=== PATIENT | female | born 1940 | race African-American/Black ===

== ENCOUNTER 2017-03-02 17:47 | Observation (INO) | payer MEDICARE ==
[2017-03-02] MEDS ORDERED: Nitroglycerin 0.4 MG TAB (25 Tab Bottle) ONE (19:40)
[2017-03-02 20:26] LABS: #Eosinphils 0.1 thou/uL (0.0-0.7); #Lymphocytes 1.7 thou/uL (1.20-3.40); #Monocytes 0.4 thou/uL (0.11-0.59); #Neutrophils 5.9 thou/uL (1.40-6.50); %Basophils 0.4 % (0.0-1.0); %Eosinophils 1.3 % (0.0-10.0); %Lymphocytes 20.4 % (21.0-51.0); Hematocrit 47.7 % (36.0-47.0); White Blood Cell (WBC) Count 8.1 thou/uL (4.8-10.8)
[2017-03-02 20:50] LABS: Troponin I Less than 0.010 ng/mL (< 0.028)
[2017-03-02 20:56] LABS: ALT (SGPT) 49 U/L (8-55); AST (SGOT) 31 U/L (5-34); Alkaline Phosphatase 77 U/L (40-150); Anion Gap 16 mmol/L (10-20); BUN (Urea Nitrogen) 19 mg/dL (9.8-20.1); Bilirubin, Total 0.5 mg/dL (0.2-1.2); CK (CPK) 191 U/L (29-168); Calc. Creatinine Clearance 0 mL/min (70-130); Calcium 9.9 mg/dL (7.8-10.44); Carbon Dioxide 23 mmol/L (23-31); Chloride 102 mmol/L (98-107); Estimated GFR-MDRD 59; Lipase 30 U/L (8-78)
--- NOTE | 2017-03-02 21:45 | RAD ---
PORTABLE AP CHEST: Date: 03-02-17 History: Ongoing chest pain. Comparison: 12-13-13, 01-29-17 FINDINGS: Cardiac silhouette is magnified by projection but stable in size. Pulmonary vasculature is within no rmal limits. Thoracic aorta is ectatic but unchanged in appearance since the study on 01-29-17. Lungs are clear. There has been no interval change from the prior studies. IMPRESSION: 1. Stable chest without evidence of acute cardiopulmonary process. 2. 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 POS: [facility]
--- NOTE | 2017-03-02 22:43 | HP ---
DATE OF ADMISSION: 03/02/2017 CHIEF COMPLAINT: Elevated blood pressure with mild chest discomfort. CODE STATUS: FULL CODE. SURROGATE DECISION-MAKER: Patient makes her own decisions with the help of her family. HISTORY OF PRESENT ILLNESS: Patient is a 76-year-old female with hypertension, hyperlipidemia, and chronic diastolic heart failure, currently followed by Dr. Momin at [facility], presented to the emergency room with elevated blood pressure. The patient had some headache along with mild ches t discomfort. She felt that her blood pressure was high for which she presented to the emergency ro . She, however, did not check her blood pressure at home. She normally takes blood pressure medi cations twice a day and has not missed her morning dose. She was resting at home when this episode started. She had mild chest discomfort mainly over the epigastric region with some belching that st arted today. She denies any orthopnea, paroxysmal nocturnal dyspnea or recent shortness of breath o n routine activities. No leg swelling, fevers, chills, cough or wheezing reported. In the emergency room, her initial vital signs showed blood pressure of 212/143 with pulse rate of 8 4, respiration 20, temperature 98.4 with O2 saturation 96% on room air. She received sublingual nit roglycerin 0.4 along with aspirin. After sublingual nitroglycerin, her blood pressure has dropped t o 133/72 at this time. Her headache and chest discomfort has completely resolved. She denies any c ardiac workup except for an echocardiogram when she was admitted at this facility in 2013. Her echo cardiogram at that time showed normal left ventricular ejection fraction with mild concentric left v entricular hypertrophy and evidence for diastolic dysfunction with moderate to severe mitral regurgi tation and mild tricuspid regurgitation. She does not follow a benefits sales consultant. PAST MEDICAL HISTORY: 1. Hypertension 2. Hyperlipidemia. 3. History of ER and [place] positive breast cancer, currently on anastrozole followed at [facility]. 4. Chronic obstructive pulmonary disease. 5. Obesity. 6. History of cerebrovascular without residual deficit. 7. Chronic diastolic heart failure with moderate to severe mitral regurgitation in 2013. 8. Peptic ulcer disease secondary to nonsteroidal anti-inflammatory drugs. PAST SURGICAL HISTORY: 1. Left hand surgery. 2. Hysterectomy. 3. Mastectomy with axillary lymphadenopathy on the right in 2014. ALLERGIES: No known drug allergies. CURRENT HOME MEDICATIONS: Patient does not remember any of her home medications. SOCIAL HISTORY: Patient currently lives at home with her family. No current use of smoking, alcoho l or drug use. FAMILY HISTORY: Negative for premature coronary artery disease. REVIEW OF SYSTEMS: REVIEW OF SYSTEMS: The following complete review of systems was negative, unles s otherwise mentioned in the HPI or below: CONSTITUTIONAL: Weight loss or gain, ability to conduct usual activities. SKIN: Rash, itching. EYES: Double vision, pain. ENT/MOUTH: Nose bleeding, neck stiffness, pain, tenderness. CARDIOVASCULAR: Palpitations, dyspnea on exertion, orthopnea. RESPIRATORY: Shortness of breath, wheezing, cough, hemoptysis, fever or night sweats. GASTROINTESTINAL: Poor appetite, abdominal pain, heartburn, nausea, vomiting, constipation, or diar oscar. GENITOURINARY: Urgency, frequency, dysuria, nocturia. MUSCULOSKELETAL: Pain, swelling. NEUROLOGIC/PSYCHIATRIC: Anxiety, depression. ALLERGY/IMMUNOLOGIC: Skin rash, bleeding tendency. PHYSICAL EXAMINATION: VITAL SIGNS: As discussed above. GENERAL: A 76-year-old female in no apparent distress. Denies any chest pain, shortness of breath at this time. Headache has improved. HEENT: Head atraumatic, normocephalic. Sclerae anicteric. Moist mucous membrane, no oral lesion. NECK: Supple, no JVD, no carotid bruit. LUNGS: Clear to auscultation bilaterally. No wheezing or rales. HEART: S1, S2 present. Regular rate and rhythm. 3/6 systolic murmur over the mitral area. ABDOMEN: Soft, nontender, bowel sounds present, no rebound, guarding, no costovertebral angle tende rness. EXTREMITIES: No edema or calf tenderness. NEUROLOGIC: Grossly nonfocal, moves all four extremities. PSYCHIATRY: Alert, awake, oriented x3. SKIN: Warm and dry. LYMPH NODES: No palpable lymph nodes in the neck. PERIPHERAL VASCULAR: Radial pulses palpable bilaterally. MUSCULOSKELETAL: No joint swelling or tenderness. LABORATORY FINDINGS: 1. CBC showed WBC 8.1 with hemoglobin 15.5. 2. Electrolytes in normal range with BUN 19 and creatinine 1.1. 3. LFTs in normal range. 4. Cardiac enzymes were normal. Chest x-ray by my review was negative for infiltrate. Telemetry monitoring by my review showed sinus rhythm. EKG not in the chart. IMPRESSION: 1. Hypertensive urgency with chest discomfort. We will rule out acute coronary syndrome. We will resume her home medications based on [facility]. However, patient does not remember an y of her home medications. She had an echocardiogram in 2013. Since then, she did not have any car diac workup. I even reviewed [facility]. She does not follow a benefits sales consultant. We will keep her n.p.o. past midnight for stress test. An echocardiogram will be done as well. She can fo llow the echocardiogram results probably as outpatient. She will benefit from yearly echocardiogram s due to moderate to severe mitral regurgitation. 2. Hyperlipidemia. We will resume home medications once confirmed. 3. Mild dyspepsia, which started today. Probably secondary to peptic ulcer disease. We will add p roton pump inhibitors. 4. History of breast cancer. We will resume anastrozole once dose confirmed. 5. History of chronic obstructive pulmonary disease. We will add p.r.n. nebulizer treatment. 6. Obesity. 7. History of cerebrovascular accident. 8. Chronic diastolic heart failure, compensated. Plan of care was discussed with the patient. She stated understanding. DISCHARGE DISPOSITION: Home probably in 24 hours.
[2017-03-02] MEDS ORDERED: Ondansetron HCl/PF 4 MG/2 ML Vial IVP PRN (22:44)
[2017-03-02] MEDS ORDERED: Ondansetron ODT 4 MG TAB PO PRN (22:44)
[2017-03-02] MEDS ORDERED: Nitroglycerin 0.4 MG TAB (25 Tab Bottle) PO PRN (22:44)
[2017-03-02] MEDS ORDERED: Senokot 8.6 MG TAB PO PRN (22:44)
[2017-03-02] MEDS ORDERED: Bisacodyl 10 MG SUPP PR PRN (22:44)
[2017-03-02] MEDS ORDERED: Acetaminophen 325 MG TAB PO PRN ×2 (22:44→23:55)
[2017-03-02 23:12] LABS: Troponin I Less than 0.010 ng/mL (< 0.028)
[2017-03-02 23:17] VITALS: BMI 37.3
[2017-03-03 01:18] LABS: Magnesium 2.2 mg/dL (1.6-2.6); Phosphorus 3.1 mg/dL (2.3-4.7)
[2017-03-03 01:39] LABS: Troponin I Less than 0.010 ng/mL (< 0.028)
[2017-03-03] MEDS ORDERED: Aspirin 325 MG TAB PO SCH (09:00)
[2017-03-03] MEDS ORDERED: Metoprolol Tartrate 25 MG TAB PO SCH (09:00)
[2017-03-03] MEDS ORDERED: Lisinopril 10 MG TAB PO SCH (09:00)
[2017-03-03] MEDS ORDERED: Regadenoson 0.4 MG/5 ML SYRINGE ONE (12:00)
--- NOTE | 2017-03-03 14:13 | NM ---
CARDIAC SPECT: CLINICAL HISTORY: 76-year-old female with chest pain. TECHNIQUE: A stress-only myocardial perfusion scan was performed following the intravenous administration of 33 mCi technetium-99m sestamibi. Pharmacologic stress with Lexiscan was monitored and interpreted by Judith Barrientos. FINDINGS: Homogeneous tracer distribution is seen in the myocardial segments on the post stress images without fixed or reversible defects. GATED SPECT LVEF: 60%. WALL MOTION EXAM: Normal. IMPRESSION: Normal post stress myocardial perfusion scan. POS: [facility]
[2017-03-03 15:46] VITALS: BP 177/81; TEMP 97.8
[2017-03-03] MEDS ORDERED: Enoxaparin Sodium 40 MG/0.4 ML SYRINGE SC SCH (21:00)
--- NOTE | 2017-03-03 23:13 | DIS ---
DATE OF ADMISSION: 03/02/2017 DATE OF DISCHARGE: 03/03/2017 DISCHARGE DIAGNOSES: 1. Hypertensive urgency, resolved. 2. Chest pain, non-cardiac. 3. Hyperlipidemia, stable. 4. Gastroesophageal reflux. CONSULTATIONS: None. PERTINENT LABORATORY AND X-RAY FINDINGS: Basic metabolic profile within normal limits. Phosphorus 3.1, magnesium 2.2. LFTs within normal limits. Total CK 191. Troponin I negative x3. Albumin 4.0 , lipase 30. CBC within normal limits. Portable chest x-ray dated 03/02/2017 showed no acute cardi opulmonary process. A 2D transthoracic echocardiogram dated 03/03/2017 showed preserved ejection fraction of 55%-60%. D iastolic dysfunction. Moderate mitral valve regurgitation. Cardiolite stress test dated 03/03/2017 showed no evidence for reversible or fixed ischemia with calculated ejection fraction of 60%. HOSPITAL COURSE: Patient was observed on the telemetry unit after initially presenting with hyperte nsive urgency associated with chest pain. Patient underwent serial cardiac enzymes, which were nega tive x3 as well as proceeding to Lexiscan Cardiolite stress testing showing no evidence of reversibl e or fixed ischemia with calculated ejection fraction of 60%. Patient underwent 2D transthoracic ec hocardiogram showing some evidence of diastolic dysfunction; however, ejection fraction was preserve d at 55%-60%. Overall, patient remained clinically stable through the remainder of the hospital cou rse with telemetry monitoring showing a sinus mechanism with rates in the 80s. No evidence of acute arrhythmia or dysrhythmia noted. Patient is stable and ready for discharge, 03/03/2017. DISCHARGE MEDICATIONS: 1. Metoprolol 25 mg one tab p.o. b.i.d. 2. Lisinopril 10 mg 1 tab p.o. daily. FOLLOWUP: Patient will follow up with her primary care provider, Dr. Momin at [facility] within 7 days of discharge. CONDITION ON DISCHARGE: Stable. ACTIVITY: Ad-giovanni. DIET: Heart healthy. CODE STATUS: FULL. DISPOSITION: Home, 03/03/2017.
--- NOTE | 2017-03-06 14:57 | EKG ---
Test Reason : Blood Pressure : / mmHG Vent. Rate : 080 BPM Atrial Rate : 080 BPM P-R Int : 198 ms QRS Dur : 074 ms QT Int : 368 ms P-R-T Axes : 019 016 026 degrees QTc Int : 424 ms Normal sinus rhythm Normal ECG Confirmed by QUYEN LEIGH D.O. ([id number]), editor managing newspaper TOR LEDESMA ([id number]) on 03/06/2017 2:57:18 PM Referred By: Confirmed By:QUYEN LEIGH D.O.
== END 2017-03-03 16:16 | disposition home or self-care (01) ==
LOC: ERS 17:47 → 2SW 22:00
PROVIDERS: ADMIT Internal Medicine; ATTEND Internal Medicine
DX: I16.0 Hypertensive urgency (principal); R07.89 Other chest pain; E78.5 Hyperlipidemia, unspecified; K21.9 Gastro-esophageal reflux disease without esophagitis; I11.0 Hypertensive heart disease with heart failure; J44.9 Chronic obstructive pulmonary disease, unspecified; I50.32 Chronic diastolic (congestive) heart failure; C50.919 Malignant neoplasm of unspecified site of unspecified female breast; E66.9 Obesity, unspecified; Z68.37 Body mass index [BMI] 37.0-37.9, adult; Z79.899 Other long term (current) drug therapy; Z17.0 Estrogen receptor positive status [ER+]; Z90.710 Acquired absence of both cervix and uterus; Z90.11 Acquired absence of right breast and nipple; Z98.890 Other specified postprocedural states; Z86.73 Personal history of transient ischemic attack (TIA), and cerebral infarction without residual deficits; Z87.891 Personal history of nicotine dependence; Z87.11 Personal history of peptic ulcer disease
CPT/HCPCS: 71010; 78452; 80053; 82550; 82553; 83690; 83735; 84100; 84484 ×3; 85025; 93005; 93017; 93306; 94760 ×2; 99285; A9500; G0378; 36415; J2785

== ENCOUNTER 2019-10-07 15:27 | Emergency (ER) | payer MEDICARE ==
[2019-10-07] MEDS ORDERED: Dexamethasone 4 mg/ml Vial ONE (16:11)
[2019-10-07] MEDS ORDERED: Ketorolac Tromethamine 30 MG/ML VIAL ONE (16:11)
== END 2019-10-07 16:36 | disposition home or self-care (01) ==
LOC: ERS 15:27
DX: M16.0 Bilateral primary osteoarthritis of hip (principal); M47.816 Spondylosis without myelopathy or radiculopathy, lumbar region; G43.909 Migraine, unspecified, not intractable, without status migrainosus; E78.5 Hyperlipidemia, unspecified; E78.00 Pure hypercholesterolemia, unspecified; I10 Essential (primary) hypertension; Z87.891 Personal history of nicotine dependence
CPT/HCPCS: 96372; 99283; J1100; J1885

== ENCOUNTER 2020-08-22 14:10 | Emergency (ER) | payer MEDICARE ==
[2020-08-22 14:57] LABS: #Basophils 0.1 thou/uL (0.0-0.2); #Eosinphils 0.1 thou/uL (0.0-0.7); #Lymphocytes 2.4 thou/uL (1.20-3.40); #Monocytes 1.2 thou/uL (0.11-0.59); #Neutrophils 5.7 thou/uL (1.40-6.50); %Basophils 0.7 % (0.0-1.0); %Eosinophils 0.9 % (0.0-10.0); %Lymphocytes 25.5 % (21.0-51.0); %Monocytes 12.5 % (0.0-10.0); %Neutrophils 60.4 % (42.0-75.0); Mean Corpuscular HGB CONC 32.9 g/dL (32.0-36.0); Mean Corpuscular Hemoglobin 31.5 pg (27.0-31.0); Mean Corpuscular Volume 95.7 fL (78.0-98.0); Mean Platelet Volume 6.9 fL (7.4-10.4); Platelet Count 465 thou/uL (130-400); RBC Distribution Width 12.1 % (11.5-14.5); Red Blood Cell (RBC) Count 4.14 mill/uL (4.20-5.40); White Blood Cell (WBC) Count 9.4 thou/uL (4.8-10.8)
[2020-08-22 15:02] LABS: Bilirubin Negative (Negative); Blood, Urine Negative (Negative); Clarity Turbid (Clear); Glucose, Urine (Dipstick) Normal (Negative); Ketone, Urine Negative (Negative); Leukocyte Negative Leu/uL (Negative); Nitrite Negative (Negative); Protein, Urine (Dipstick) 10 mg/dL (Neg-Trace); Specific Gravity, Urine 1.023 (1.002-1.036); Urobilinogen Normal mg/dL (Less than 2); pH, Urine 7.5 (5.0-9.0)
[2020-08-22 15:21] LABS: ALT (SGPT) 23 U/L (8-55); AST (SGOT) 25 U/L (5-34); Albumin 3.9 g/dL (3.4-4.8); Alkaline Phosphatase 85 U/L (40-110); Anion Gap 14 mmol/L (10-20); BUN (Urea Nitrogen) 11 mg/dL (9.8-20.1); Bilirubin, Total 0.6 mg/dL (0.2-1.2); Calc. Creatinine Clearance 0 mL/min (70-130); Calcium 9.4 mg/dL (7.8-10.44); Carbon Dioxide 24 mmol/L (23-31); Chloride 106 mmol/L (98-107); Globulin 4.8 g/dL (2.4-3.5); Glucose 96 mg/dL (83-110); Potassium 4.4 mmol/L (3.5-5.1); Protein, Total 8.7 g/dL (5.8-8.1); Sodium 140 mmol/L (136-145)
[2020-08-22] MEDS ORDERED: Ondansetron PF 4 MG/2 ML Vial ONE (16:47)
== END 2020-08-22 17:40 | disposition home or self-care (01) ==
LOC: ERS 14:10
DX: R55 Syncope and collapse (principal); I10 Essential (primary) hypertension; D47.3 Essential (hemorrhagic) thrombocythemia; E78.5 Hyperlipidemia, unspecified; E78.00 Pure hypercholesterolemia, unspecified
CPT/HCPCS: 71045; 80053; 81003; 83880; 84443; 84484; 85025; 93005; 96374; J2405